=== PATIENT | female | born 1990 | race Caucasian/White ===

== ENCOUNTER 2020-08-31 10:10 | Outpatient (CLI) | payer MEDICAID | END 2020-08-31 10:11 | disposition EMS.NT | LOC: EMS 10:10 | DX: Z03.89 Encounter for observation for other suspected diseases and conditions ruled out (principal) ==

== ENCOUNTER 2020-08-31 10:16 | Emergency (ER) | payer MEDICAID ==
--- NOTE | 2020-08-31 11:24 | XRAY Report ---
PROCEDURE: Hip w/Pelvis 2-3V LT INDICATIONS: bucked off from horse, landed on left hip,now pain TECHNIQUE: AP pelvis with lateral view(s) of the left hip(s). COMPARISON: None. FINDINGS: Bones: No fractures or dislocations. Pelvic ring appears intact. No suspicious bony lesions. Soft tissues: The visualized bowel gas pattern is normal. No suspicious soft tissue calcifications. IMPRESSION: No visualized acute fracture or dislocation. However, occult injury cannot be excluded. Recommend short interval imaging follow-up in 7-10 days as clinically indicated for additional evalua tion. Reviewed by: Jess Lucio MD on 08/31/2020 11:23 AM PDT Approved by: Jess Lucio MD on 08/31/2020 11:23 AM PDT Station ID: [id number]
[2020-08-31] MEDS ORDERED: KETOROLAC 60 MG/2 ML VIAL IM STA (11:33)
--- NOTE | 2020-08-31 11:33 | ED Physician Documentation ---
PD HPI LOWER EXT INJURY - Stated complaint Stated Complaint: THROWN OFF HORSE - Chief complaint Chief Complaint: Ext Problem - History obtained from History obtained from: Patient - History of Present Illness PD HPI LOW EXT INJURY LOCATION: Left, Hip Type of injury: Fall Where injury occurred: Park Timing - onset: Today Timing - duration: Hours Timing - details: Abrupt onset, Still present Improved by: Rest, Immobilization Worsened by: Moving, Palpating Associated symptoms: No: Weakness, Numbness, Tingling, Swelling Contributing factors: No: Anticoagulated Similar symptoms before: Diagnosis (contusion) Recently seen: Not recently seen - Additional information Additional information: Previously L 30-year-old female who works as a [employer] has been riding her horse today when she was bucked off she landed onto her left hip. She was unable to walk at the site at the site and is brought to the hospital by ambulance. She has pain to the left hip and this is posterior and to the buttocks side. Review of Systems Constitutional: denies: Fever Ears: denies: Ear pain Nose: denies: Congestion Cardiac: denies: Chest pain / pressure Respiratory: denies: Dyspnea, Cough GI: denies: Abdominal Pain, Nausea, Vomiting, Constipation, Diarrhea : denies: Dysuria, Frequency PD PAST MEDICAL HISTORY - Present Medications Home Medications: Ambulatory Orders Medication Instructions Recorded Confirmed Cetirizine [ZyrTEC] 1 tab PO DAILY 08/31/20 08/31/20 Citalopram [CeleXA] 20 mg PO DAILY 08/31/20 08/31/20 HYDROcod/ACETAM 5/325 [[place] 5/325] 1 - 2 tablet PO Q6H PRN #14 tablet 08/31/20 Ibuprofen [Motrin] 1 tab PO PRN PRN 08/31/20 08/31/20 Norethindrone-Ethinyl Estrad 1 tab PO DAILY 08/31/20 08/31/20 [Dasetta 1-35-28 Tablet] - Allergies Allergies/Adverse Reactions: Allergies Allergy/AdvReac Type Severity Reaction Status Date / Time No Known Drug Allergies Allergy Verified 08/31/20 10:54 PD ED PE NORMAL - Vitals Vital signs reviewed: Yes (Hypertensive) - General General: Alert and oriented X 3, No acute distress, Well developed/nourished - HEENT HEENT: Atraumatic, PERRL, EOMI - Neck Neck: Supple, no meningeal sign, No bony TTP - Cardiac Cardiac: RRR, No murmur - Respiratory Respiratory: No respiratory distress, Clear bilaterally - Abdomen Abdomen: Normal bowel sounds, Soft, Non tender, Non distended, No organomegaly - Back Back: No CVA TTP, No spinal TTP, Other (There is point tenderness to the area of insertion of the latissimus dorsi into the posterior aspect of the illiac) - Derm Derm: Normal color, Warm and dry, No rash - Extremities Extremities: No deformity, No edema, Other (point tenderness to the trochanter with normal ROM flex/ex and pain to internal rotation over muscles attached to the illiac posteriorly ) - Neuro Neuro: Alert and oriented X 3, lag screwer 2-12 intact, No motor deficit, No sensory deficit, Normal speech Eye Opening: Spontaneous Motor: Obeys Commands Verbal: Oriented GCS Score: 15 - Psych Psych: Normal mood, Normal affect Results - Vitals Vitals: Vital Signs - 24 hr 08/31/20 08/31/20 08/31/20 10:28 12:30 13:14 Temperature 37.3 C 37.3 C Heart Rate 70 68 66 Respiratory 18 16 16 Rate Blood Pressure 126/95 H 145/92 H 140/77 H O2 Saturation 99 100 100 Oxygen O2 Source Room air - Rads (name of study) hip L Radiology: Prelim report reviewed (Impression: No visualized acute fracture or dislocation.), EMP read indepedently, See rad report PD MEDICAL DECISION MAKING - ED course Complexity details: reviewed results, re-evaluated patient, considered differential, d/w patient, d/w family ED course: 22-year-old female bucked off of a horse with some pain to the left hip area feels that the pain is worse if she is moving certain ways and she feels this is a muscular type muscular type of injury. There is no fracture on x-ray examination she is administered Toradol [address] tested[address] She requires dilaudid for pain control. Departure - Departure Disposition: 01 Home, Self Care Clinical Impression: Contusion, hip Qualifiers: Encounter type: initial encounter Laterality: left Qualified Code(s): S70.02XA - Contusion of left hip, initial encounter Instructions: ED Contusion Hip Follow-Up: Your, doctor [Other] Prescriptions: HYDROcod/ACETAM 5/325 [[place] 5/325] 1 - 2 tablet PO Q6H PRN #14 tablet PRN Reason: Pain Discharge Date/Time: 08/31/20 14:29
[2020-08-31] MEDS ORDERED: ONDANSETRON ODT 4 MG TABLET TL STA (12:52)
[2020-08-31] MEDS ORDERED: HYDROmorphone 1 MG/ML CARPUJECT IM STA (12:52)
[2020-08-31 13:15] VITALS: BP 140/77
== END 2020-08-31 14:29 | disposition home or self-care (01) ==
LOC: ED 10:16
DX: S70.02XA Contusion of left hip, initial encounter (principal); V80.918A Animal-rider injured in other transport accident, initial encounter; Y93.52 Activity, horseback riding; Y92.830 Public park as the place of occurrence of the external cause
CPT/HCPCS: 73502; 96372; 99283; 99284; J1170; Q0162